=== PATIENT | female | born 1965 | race Two or more races ===

== ENCOUNTER 2016-10-05 10:08 | Emergency (ER) | payer OTHER ==
[~2016-10-05] VITALS: Ht 157.5 cm; Wt 90.7 kg
--- NOTE | 2016-10-05 10:37 | NUR ---
PT REC'D TO ER VIA EMS PT HAD DENTAL PROC TODAY AND FACE IS NUMB HARD TO SPEAK GIVEN BENADRLY IN FIELD . FAMIOLY AT BEDSID E PT SPEAKS SERBIAN . VSS CONT TO MONITOR IV HEPLOCKED 18G RT HAND
--- NOTE | 2016-10-05 11:07 | NUR ---
PT AMB TO BR STABLE PENDING D/C Patient discharged to home in stable condition. Written and verbal after care instructions given. Patient verbalizes understanding of instruction.IV removed. Catheter intact and site benign. Pressure and 4x4 applied to site. No bleeding noted.
[2016-10-05 11:09] VITALS: BP 145/73
== END 2016-10-05 11:17 | disposition home or self-care (01) ==
LOC: ER 10:09
DX: T49.0X5A Adverse effect of local antifungal, anti-infective and anti-inflammatory drugs, initial encounter (principal); Y92.89 Other specified places as the place of occurrence of the external cause
CPT/HCPCS: 99283; A4606; Z7610

== ENCOUNTER 2017-01-09 20:25 | Emergency (ER) | payer OTHER ==
[~2017-01-09] VITALS: Ht 162.6 cm; Wt 63.5 kg
--- NOTE | 2017-01-09 20:30 | NUR ---
TO BED 4 A 51 YO FEMALE PT BIBA#102 PT C/O CP ON AND OFF X 2 WEEKS, PT GIVEN 162MG OF ASA AND 0.4 OF NITRO, PT HAS NO CP AT THIS TIME JUST A HEADACHE. PATIENT IS AAOX4, NAD NOTED, VSS, NONDIAPHORETIC. GOWNED. COMFORT MEASURES RENDERED. ONGOING CARDIAC AND VS MONITORING.
--- NOTE | 2017-01-09 20:33 | NUR ---
PATIENT ARRIVED WITH LEFT HAND G20 IV BY PARAMEDICS, INTACT AND PATENT.
--- NOTE | 2017-01-09 20:35 | NUR ---
Dr Vitale at bedside to mirnaal.
[2017-01-09 20:42] LABS: BASOPHILS # (AUTO) 0.1 /CMM (0.0-0.2); BASOPHILS % (AUTO) 0.8 % (0.0-2.0); EOSINOPHILS # (AUTO) 0.2 /CMM (0.0-0.7); EOSINOPHILS % (AUTO) 2.5 % (0.0-6.0); HEMATOCRIT 40 % (33-45); HEMOGLOBIN 13.4 g/dL (11.5-14.8); LYMPHOCYTES % (AUTO) 39.8 % (20.0-44.0); MEAN CORPUSCULAR HEMOGLOBIN 30 PG (26.0-33.0); MEAN CORPUSCULAR HGB CONC 34 g/dl (31.0-36.0); MEAN CORPUSCULAR VOLUME 88 fL (82-100); MONOCYTES # (AUTO) 0.7 /CMM (0.1-1.30); MONOCYTES % (AUTO) 6.7 % (2.0-12.0); NEUTROPHILS % (AUTO) 50.2 % (43.0-81.0); PLATELET COUNT (AUTO) 314 /CMM (150-450); RDW COEFFICIENT OF VARIATION 13.3 (11.5-15.0); RED BLOOD CELL COUNT(AUTO) 4.53 MIL/uL (4.0-5.2)
--- NOTE | 2017-01-09 20:45 | NUR ---
xr at bedside.
[2017-01-09 20:57] LABS: CALCIUM, SERUM 9.1 mg/dL (8.5-10.1); CARBON DIOXIDE 26 mmol/L (21-32); CHLORIDE 103 mmol/L (98-107); CREATININE 0.8 mg/dL (0.6-1.3); GLUCOSE 116 mg/dL (74-106); SODIUM SERUM 139 mmol/L (136-145); UREA NITROGEN, BLOOD 22 mg/dL (7-18)
[2017-01-09] MEDS ORDERED: HYDROCODONE/APAP 5/325MG 1 EACH TABLET ONE (20:57)
[2017-01-09] MEDS ORDERED: HYDROCODONE/APAP 5/325MG 1 EACH TABLET PO ONE (21:00)
[2017-01-09 21:01] LABS: INR 0.99 (0.87-1.13); PROTHROMBIN TIME 10.3 SECS (9.5-12.7)
[2017-01-09 21:03] LABS: ALANINE AMINOTRANSFERASE 23 U/L (12-78); ALBUMIN 3.6 g/dL (3.4-5.0); ALKALINE PHOSPHATASE 95 U/L (46-116); ASPARTATE AMINOTRANSFERASE 15 U/L (15-37); BILIRUBIN,DIRECT 0.1 mg/dL (0.0-0.2); BILIRUBIN,TOTAL 0.2 mg/dL (0.2-1.0); TOTAL PROTEIN, SERUM 7.4 g/dL (6.4-8.2)
[2017-01-09 21:05] LABS: TROPONIN I < 0.017 ng/mL (0.00-0.056)
--- NOTE | 2017-01-09 22:16 | NUR ---
IV removed. Catheter intact and site benign. Pressure and 4x4 applied to site. No bleeding noted. Patient discharged to home in stable condition. Written and verbal after care instructions given. Patient verbalizes understanding of instruction. Patient is ambulatory with a steady gait, instructed not to drive. Accompanied by going home. No further complaints.
[2017-01-09 22:18] VITALS: BP 135/74
== END 2017-01-09 22:18 | disposition home or self-care (01) ==
LOC: ER 20:26
DX: R51 Headache (principal); R07.9 Chest pain, unspecified; R11.0 Nausea; I10 Essential (primary) hypertension; F17.200 Nicotine dependence, unspecified, uncomplicated
CPT/HCPCS: 36415; 71010; 80048; 80076; 84484; 85025; 85730; 93005; 99285; 99406; A4606; Z7610